=== PATIENT | male | born 2000 | race Two or more races ===

== ENCOUNTER 2024-08-15 19:36 | Emergency (ER) | payer SELFPAY ==
[2024-08-15] MEDS: Amoxicillin/Clavulanate K 875-125 MG Tab PO ONE (20:29)
== END 2024-08-15 20:34 | disposition home or self-care (01) ==
LOC: MW.ED 19:36
DX: K04.7 Periapical abscess without sinus (principal); Z79.899 Other long term (current) drug therapy; Z75.8 Other problems related to medical facilities and other health care
CPT/HCPCS: 99283; A9270

== ENCOUNTER 2024-11-28 11:44 | Emergency (ER) | payer SELFPAY | END 2024-11-28 12:31 | disposition home or self-care (01) | LOC: MW.ED 11:44 | DX: B35.6 Tinea cruris (principal); Z75.8 Other problems related to medical facilities and other health care; Z79.899 Other long term (current) drug therapy | CPT/HCPCS: 99283 ==